=== PATIENT | male | born 1940 | race Two or more races ===

== ENCOUNTER 2019-10-02 16:10 | Emergency (ER) | payer MEDICARE, SELFPAY ==
[2019-10-02] VITALS (10 sets, daily range): BP systolic 97–156; BP diastolic 56–83; PULSE 78–99; RESP 20; TEMP 37.2; O2SAT 91–97
--- NOTE | ~2019-10-02 | CT_ITS ---
EXAMINATION: CT knee LT w con EXAM DATE: 10/02/2019 18:30 INDICATION: Left knee swelling. TECHNIQUE: Spiral CT knee LT w con was performed following intravenous injection of 100 mL Omnipaque 350. Axial, coronal and sagittal images were reviewed. The dose-length product (DLP) for this exami nation was 1435.50 mGy-cm. The exposure was tailored according to patient size (auto mA exposure con trol), and iterative reconstruction (ASIR) was used as additional dose reduction technique. Correlati on is made to x-ray same date. 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 There is distal left femoral metaphyseal fracture, w hich is probably chronic given the reparative attempt, bony productive changes identified posteriorly . 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 There is loss of trabeculation, large fluid pocket within the distal femoral metaphysis deep to the f emoral component of the hardware, which contains foci of gas consistent with infected fluid. This is contiguous to moderate amount of joint fluid which is likely septic arthritis. There is also lucency surrounding the tibial component consistent with osteomyelitis. Patellar erosion along the articular surface. There is a small pocket anterior to the femoral distal diaphysis, approximately fluid 8 cm cephalad t o the femoral hardware, measuring 4.0 x 2.6 cm in greatest axial dimensions, and also several small l oculations posteriorly along the musculature slightly more inferiorly. IMPRESSION: 1. 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 2. Several pockets of abscess along the left femoral distal diaphysis anteriorly and musculature post eriorly. Reviewed, dictated and finalized at location A. IMPRESSION: 1. Infected knee arthroplasty with probable chronic pathological fracture of le ft femoral metaphysis. 2. Several pockets of abscess along the left femoral distal diaphysis anteriorl y and musculature posteriorly.
--- NOTE | ~2019-10-02 | XR_ITS ---
EXAMINATION: XR knee LT 3V EXAM DATE: 10/02/2019 16:51 INDICATION: No known recent injury provided at this time. Pain of the left knee. TECHNIQUE: Three projections of the left knee. There is no prior study for comparison. FINDINGS: Patient has total left knee arthroplasty. There is acute fracture through the left femoral distal metaphysis, above the femoral component with approximately 2 cm posteromedial displacement of the knee. There is evidence of large effusion/hemarthrosis. There is moderate scattered arterioscle rotic disease. Extensive soft tissue swelling. The tibial component of hardware appears intact but on the frontal projection there is up to 6 mm radha ency between the tibial plateau portion of hardware and supporting bone, could indicate small particl e disease or possibly infection. In either case, orthopedic consult indicated. IMPRESSION: 1. Acute left distal femoral metaphyseal fracture above the femoral component of replacement hardwar e. 2. Lucency underneath tibial plateau component of hardware, could indicate small particle disease an d/or septic joint/hardware. Reviewed, dictated and finalized at location A. IMPRESSION: 1. Acute left distal femoral metaphyseal fracture above the femoral component of replacement hardware. 2. Lucency underneath tibial plateau component of hardware, could indicate sma ll particle disease and/or septic joint/hardware.
--- NOTE | 2019-10-02 16:23 | ED.EXTPRO ---
HPI - Extremity Problem General Chief complaint: Extremity Problem,Nontraumatic <WHITNEY Anton Last Filed: 10/02/19 20:03> Stated complaint: WOUNDS TO KNEE <WHITNEY Anton Last Filed: 10/02/19 20:03> Time Seen by Provider: 10/02/19 16:11 <WHINTEY Anton Last Filed: 10/02/19 20:03> Source: patient <WHITNEY Anton Last Filed: 10/02/19 20:03> Mode of arrival: ambulatory <WHITNEY Anton Last Filed: 10/02/19 20:03> Limitations: no limitations <WHITNEY Anton Last Filed: 10/02/19 20:03> History of Present Illness HPI Narrative: Patient is a 79-year-old male who presents from [facility] per EMS for evaluation of wounds to the left leg patient reportedly has had 2 wounds to the medial and lateral aspect of the left knee. The lateral wound has began to drain was sent in for evaluation of the wounds. Patient with history of dementia is ANO x1 upon arrival. Patient is nontoxic-appearing and resting comfortably in the room upon arrival. <WHITNEY Anton Last Filed: 10/02/19 20:03> Related Data Home medications: Home Medications Medication Instructions Recorded Confirmed acetaminophen [Tylenol] 650 mg PO PRN PRN 10/02/19 apixaban [Eliquis] mg BID 10/02/19 atorvastatin HS 10/02/19 finasteride mg DAILY 10/02/19 insulin glargine [Lantus Solostar 15 unit SUBCUT HS 10/02/19 10/02/19 U-100 Insulin] insulin lispro [Humalog KwikPen 5 unit SUBCUT TID 10/02/19 10/02/19 Insulin] latanoprost See Rx Instructions .ROUTE .COMPLEX 10/02/19 magnesium oxide 800 mg PO DAILY 10/02/19 metoprolol tartrate BID 10/02/19 mirtazapine 7.5 mg HS 10/02/19 10/02/19 yclnlyrqagdc-kjq-xnvc-FA-vit K tablet PO DAILY 10/02/19 [Adults Multivitamin] ondansetron HCl PRN 10/02/19 oxycodone PRN 10/02/19 sennosides-docusate sodium [Senna 2 tab-cap PO BID 10/02/19 with Docusate Sodium] sertraline mg DAILY 10/02/19 <Salvador Amaya PA-C - Last Filed: 10/02/19 20:03> Allergies/Adverse reactions: Allergies Allergy/AdvReac Type Severity Reaction Status Date / Time No Known Allergies Allergy Verified 10/02/19 16:49 <Salvador Amaya PA-C - Last Filed: 10/02/19 20:03> Review of Systems Review of Systems: ROS unobtainable: Yes unobtainable due to medical condition <Salvador Amaya PA-C - Last Filed: 10/02/19 20:03> PMFSH Past Medical History Medical History: Medical History (Updated 10/02/19 @ 21:00 by Selina Garcia MD) Dementia <Salvador Amaya PA-C - Last Filed: 10/02/19 20:03> Surgical History Surgical History: Surgical History History of orthopedic surgery <Salvador Amaya PA-C - Last Filed: 10/02/19 20:03> Social History Social History: Social History (Updated 10/02/19 @ 16:24 by Salvador Amaya PA-C) Smoking status: Unknown if ever smoked Gender identity (if verbalized by the patient): Male <Salvador Amaya PA-C - Last Filed: 10/02/19 20:03> Exam Narrative: Exam Narrative: GENERAL: Chronically ill-appearing, well-nourished, and in no acute distress. HEAD: Normocephalic, atraumatic. EYES: PERRLA and EOMI. ENT: Nares clear, no rhinorrhea or epistaxis. Mucous membranes moist. CHEST: Clear to auscultation. No respiratory distress. No wheezes rales or rhonchi HEART: Regular rate and rhythm. No murmur heard. Normal peripheral pulses. ABDOMEN: Soft, nontender, nondistended EXTREMITIES: Patient with slightly red fluctuant area to the lateral aspect of the right distal thigh just above the knee with cellulitic changes along the lateral aspect of the knee. Patient with small 2 cm draining abscess to the posterior lateral aspect of the left medial knee. Erythema is not circumferential no lymphangitic streaking. Patient complains of any pain with manipulation of the joint which is swollen in comparison to the right
[2019-10-02 16:51] LABS: Basophils Absolute Auto 0.1 K/mm3 (0.0-0.1); Basophils Percent Auto 0.6 % (0.2-1.2); Eosinophils Absolute Auto 0.1 K/mm3 (0-0.3); Eosinophils Percent Auto 1.6 % (0-4.4); Hematocrit 33.7 % (42.0-52.0); Hemoglobin 10.6 g/dL (14.0-18.0); Immature Granulocyte Absolute 0.02 K/mm3 (0.00-0.031); Immature Granulocyte Percent A 0.2 % (0-0.5); Lymphocytes Absolute Auto 2.46 K/mm3 (0.9-3.2); Lymphocytes Percent Auto 30.6 % (18.3-44.2); Mean Corpuscular HGB Conc 31.5 g/dl (32-36); Mean Corpuscular Hemoglobin 24.9 pg (26-34); Mean Corpuscular Volume 79.3 fl (80-100); Mean Platelet Volume 9.2 fl (7.4-10.4); Monocytes Absolute Auto 0.6 K/mm3 (0.1-0.6); Monocytes Percent Auto 7.1 % (2.6-8.5); Neutrophils Absolute Auto 4.8 K/mm3 (1.3-6.7); Neutrophils Percent Auto 59.9 % (45.5-73.1); Platelet Count Result 489 k/mm3 (150-375); Red Blood Count 4.25 M/mm3 (4.6-6.20); White Blood Count 8.1 K/mm3 (4.5-10.0)
[2019-10-02] MEDS: SODIUM CHLORIDE 0.9% IV 1,000 ML 150 ML IV CONT (16:55)
[2019-10-02 17:14] LABS: Blood Urea Nitrogen 26 mg/dL (9-20); CRP 4.8 mg/dL (<1.0); Calcium 10.2 mg/dL (8.4-10.2); Carbon Dioxide 28 mmol/L (22-30); Chloride 96 mmol/L (98-107); Estimated CRCL calculation 67 ml/min; Estimated Glomerular Filt Rate > 60; Glucose 176 mg/dL (75-110); Potassium 4.1 mmol/L (3.4-5.0); Sodium 134 mmol/L (137-145)
[2019-10-02] MEDS: SODIUM CHLORIDE 0.9% IV 1,000 ML 999 ML IV CONT (19:00)
[2019-10-02 19:53] LABS: Add Urine Microscopic? YES; Appearance Urine Turbid (Clear); Bilirubin Urine Negative (Negative); Blood Urine Negative (Negative); Color Urine Yellow (Yellow); Glucose Urine UA 1+ mg/dL (Negative); Ketones Urine Negative (Negative); Leukocyte Esterase Ur 3+ LEU/UL (Negative); Nitrate Urine Positive (Negative); Protein Urine 1+ mg/dL (Negative); Specific Grav Ur 1.028 (1.001-1.035); Urobilinogen Urine Negative mg/dL (<2.0); WBC Clumps Urine Present /HPF; WBC Urine >75 /hpf
[2019-10-02] MEDS: HALOPERIDOL LACTATE 5 MG/ML VIAL IM (20:22)
--- NOTE | 2019-10-02 21:23 | PC.NURSE ---
Called [facility] to request transport. ETA [id number]
--- NOTE | 2019-10-02 22:57 | PC.NURSE ---
0 pt pulled out IV and would not let me start another one pt received meds to calm him down
== END 2019-10-02 23:00 | disposition short-term general hospital (02) ==
PROVIDERS: Emergency Medicine Emergency Medical Services; Emergency Provider Emergency Medicine
DX: M00.9 Pyogenic arthritis, unspecified (principal); L03.114 Cellulitis of left upper limb; N39.0 Urinary tract infection, site not specified; F03.91 Unspecified dementia, unspecified severity, with behavioral disturbance; F22 Delusional disorders; Z79.01 Long term (current) use of anticoagulants; Z79.4 Long term (current) use of insulin
CPT/HCPCS: 36415; 73562; 73701; 80048; 81001; 85025; 86140; 87040; 87070; 87075; 87086; 87088; 87147; 87186; 87205; 96361; 96365; 96367; 96368; 96372; 99285; J0131; J0690; J1630; J3370; J7030; Q9967